=== PATIENT | male | born 2000 ===

== ENCOUNTER 2024-12-03 21:14 | Emergency (ER) | payer OTHER, SELFPAY ==
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
[2024-12-03 21:29] VITALS: BP 126/59; PULSE 59; RESP 16; TEMP 37.2; O2SAT 98; BMI 28.8
[2024-12-04 00:32] VITALS: BP 134/72; PULSE 52; RESP 18; TEMP 36.8; O2SAT 98
--- NOTE | 2024-12-04 00:36 | PC.NURSE ---
PT stated that he wants to go home, pt advised on seeing provider before leaving , still would like to leave, AAOx4, nad, ambulates with a steady gait, pt left with family
== END 2024-12-04 00:39 | disposition left against medical advice (07) ==
PROVIDERS: Emergency Provider Emergency Medicine
DX: M79.602 Pain in left arm (principal); M25.512 Pain in left shoulder
CPT/HCPCS: 73030; 73060; 73090; 73120; 99281; 99284

== ENCOUNTER → 2024-12-03 21:14 | Outpatient (BNV) | payer SELFPAY | PROVIDERS: Visit Provider Radiology Diagnostic Radiology | DX: M79.602 Pain in left arm (principal); V89.2XXA Person injured in unspecified motor-vehicle accident, traffic, initial encounter | CPT/HCPCS: 73030; 73060; 73090; 73120 ==